=== PATIENT | female | born 1995 | race Two or more races ===

== ENCOUNTER 2018-12-18 16:18 | Emergency (ER) | payer BC, OTHER ==
[2018-12-18] MEDS: IBUPROFEN 200 MG TAB PO (19:27)
[2018-12-18] MEDS: LIDOCAINE 2% (MDV) 20 ML INJ INJ (19:27)
[2018-12-18] MEDS: DIPHTH/TET/ACEL PERTUSS (ADULT) 0.5 ML VIAL IM* (20:16)
== END 2018-12-18 20:25 | disposition home or self-care (01) ==
LOC: FTE 16:18
DX: S61.215A Laceration without foreign body of left ring finger without damage to nail, initial encounter (principal); W26.8XXA Contact with other sharp object(s), not elsewhere classified, initial encounter; Y92.9 Unspecified place or not applicable; Z23 Encounter for immunization
CPT/HCPCS: 12001; 90471; 90715; 99283-25